=== PATIENT | female | born 1995 | race African-American/Black ===

== ENCOUNTER 2017-08-23 17:37 | Emergency (ER) | payer MEDICAID ==
[~2017-08-23] VITALS: Ht 162.6 cm; Wt 1.0 kg
[2017-08-23] MEDS ORDERED: KETOROLAC 30MG/ML VIAL IM NR (22:45)
[2017-08-23] MEDS ORDERED: ONDANSETRON 4MG ODT PO NR (22:45)
[2017-08-23 23:00] VITALS: BP 138/79
== END 2017-08-23 23:00 | disposition home or self-care (01) ==
LOC: ER 19:53
DX: J06.9 Acute upper respiratory infection, unspecified (principal); J45.909 Unspecified asthma, uncomplicated
CPT/HCPCS: 81025; 99283

== ENCOUNTER 2018-11-04 18:28 | Emergency (ER) | payer MEDICAID ==
[~2018-11-04] VITALS: Ht 162.6 cm; Wt 122.0 kg
[2018-11-04] MEDS ORDERED: IBUPROFEN 600MG TABLET PO ONE (23:15)
[2018-11-04] MEDS ORDERED: ONDANSETRON 4MG ODT PO ONE (23:15)
[2018-11-04 23:25] VITALS: BP 146/89
== END 2018-11-04 23:41 | disposition home or self-care (01) ==
LOC: ER 18:28
DX: J01.90 Acute sinusitis, unspecified (principal)
CPT/HCPCS: 81025; 99283; Q0162